=== PATIENT | male | born 1990 | race Two or more races ===

== ENCOUNTER 2021-02-15 05:09 | Emergency (ER) | payer SELFPAY ==
[2021-02-15] MEDS ORDERED: Sodium Chloride 0.9% 2.5 ML Syringe FLUSH PRN (05:21)
[2021-02-15] MEDS ORDERED: Sodium Chloride 0.9% 10 ML Syringe FLUSH PRN (05:21)
[2021-02-15] MEDS ORDERED: Sodium Chloride 0.9% 1,000 ML IV ONE (05:22)
[2021-02-15] MEDS ORDERED: Ketorolac 30 MG/ML SDV IVPUSH ONE (05:27)
[2021-02-15] MEDS ORDERED: Ondansetron 4 MG/2 ML SDV IVPUSH ONE (05:28)
--- NOTE | 2021-02-15 05:28 | EDM.PDOC ---
ED HPI GENERAL MEDICAL PROBLEM - General Chief Complaint: Abdominal Pain Stated Complaint: ABDOMINAL PAIN Time Seen by Provider: 02/15/21 05:17 - History of Present Illness INITIAL COMMENTS - FREE TEXT/NARRATIVE: History of present illness: [] This patient woke up this morning with severe pain in the right side of his abdomen and radiates to his groin. He is also vomiting. When I first met the gentleman he sitting on the commode after passing urine and feels like he has to pass stool but is unable to produce the stool. The pain is constant and severe but there is sharp exacerbations that come and go. He is never had the pain before. Review of systems: As per history of present illness and below otherwise all systems reviewed and negative. Past medical history: As per history of present illness and as reviewed below otherwise noncontributory. Surgical history: As per history of present illness and as reviewed below otherwise noncontributory. Social history: No reported history of drug or alcohol abuse. Family history: As per history of present illness and as reviewed below otherwise noncontributory. Physical exam: Constitutional - well developed, well-nourished and in no acute distress HEENT - normocephalic, no evidence of trauma - external nose and mouth normal - no mass in neck and no JVD - mucosae moist EYES - full EOM, PERRL, no icterus - no evidence of inflammation, injection, or drainage Respiratory - no respiratory distress, equal bilateral expansion, lungs clear to auscultation and no abnormal lung sounds Cardiovascular - Regular Rhythm with S1 and S2 appreciated and no murmur, gallop or rub. GI - abdomen soft without distension or organomegaly - normal bowel sounds - no guard or rebound normal external genitalia and no mass in the scrotum. Testicles appear normal and are nontender Musculoskeletal no gross deformity of long bones or joints - no tenderness, swelling or edema Neurologic - Alert and oriented times four - CN II-XII grossly intact - motor sensory and coordination symmetrically normal Psychiatric - appropriate mood and affect with normal thought content Hematologic - No petechiae or purpura - mucosa appropriate color and sclera not pale - normal nail bed color and refill Integument - no rash or evidence of trauma - normal turgor Diagnostics: [] Therapeutics: [] Impression: [] Plan: [] Definitive disposition and diagnosis as appropriate pending reevaluation and review of above. 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 Abdomen Pain Score (Numeric/FACES): 10 - Related Data Allergies Allergy/AdvReac Type Severity Reaction Status Date / Time No Known Allergies Allergy Verified 02/15/21 05:11 Home Meds: Home Meds Acetaminophen/oxyCODONE [Percocet 325-5 MG] 1 - 2 each PO Q4H PRN #20 tab 02/15/21 [Rx] Prazosin HCl [Prazosin] 4 mg PO BEDTIME 02/15/21 [History] Sertraline [Zoloft] 200 mg PO DAILY 02/15/21 [History] Tamsulosin [Tamsulosin 24 Hr] 0.4 mg PO DAILY 10 Days #10 cap.er 02/15/21 [Rx] busPIRone [Buspar] 20 mg PO DAILY 02/15/21 [History] ED ROS GENERAL - Review of Systems Review Of Systems: Comprehensive ROS is negative, except as noted in HPI. ED EXAM, GENERAL - Physical Exam Exam: See Below Free Text/Narrative:: My physical exam is in the HPI Course - Vital Signs Text/Narrative:: Oh 6:40 AM pain was relieved with ketorolac. CT shows a 1.5 mm distal right ureter stone. Both kidneys have other stones that are not causing obstruction at this point. Last Recorded V/S: Last Vital Signs Temp 36.6 C 02/15/21 05:11 Pulse 74 02/15/21 05:11 Resp 18 02/15/21 05:11 BP 127/89 02/15/21 05:11 Pulse Ox 99 02/15/21 05:11 - Orders/Labs/Meds Orders: Active Orders 24 hr Category Date Time Status Sodium Chloride 0.9% [Saline Flush] Med 02/15/21 05:21 Active 10 ml FLUSH ASDIRECTED PRN Sodium Chloride 0.9% [Saline Flush] Med 02/15/21 05:21 Active 2.5 ml FLUSH ASDIRECTED PRN Saline Lock Insert [OM.PC] Stat Oth 02/15/21 05:21 Ordered Medication Orders Sodium Chloride (Sodium Chloride 0.9% 10 Ml Syringe) 10 ml FLUSH ASDIRECTED PRN PRN Reason: Keep Vein Open Last Admin: 02/15/21 05:32 Dose: 10 ml Documented by: IDALMIS Sodium Chloride (Sodium Chloride 0.9% 2.5 Ml Syringe) 2.5 ml FLUSH ASDIRECTED PRN PRN Reason: Keep Vein Open Last Admin: 02/15/21 05:32 Dose: 2.5 ml Documented by: IDALMIS Labs: Laboratory Tests 02/15/21 02/15/21 02/15/21 Range/Units 05:15 05:15 05:25 WBC 17.55 H (4.0-11.0) K/uL RBC 4.63 (4.50-5.90) M/uL Hgb 13.9 (13.0-17.0) g/dL Hct 39.2 (38.0-50.0) % MCV 84.7 (80.0-98.0) fL MCH 30.0 (27.0-32.0) pg MCHC 35.5 (31.0-37.0) g/dL RDW Std Deviation 38.9 (28.0-62.0) fl RDW Coeff of Maurice 13 (11.0-15.0) % Plt Count 308 (150-400) K/uL MPV 11.10 (7.40-12.00) fL Neut % (Auto) 67.6 (48.0-80.0) % Lymph % (Auto) 22.5 (16.0-40.0) % [place] % (Auto) 6.6 (0.0-15.0) % Eos % (Auto) 2.8 (0.0-7.0) % Baso % (Auto) 0.5 (0.0-1.5) % Neut # (Auto) 11.9 H (1.4-5.7) K/uL Lymph # (Auto) 4.0 H (0.6-2.4) K/uL [place] # (Auto) 1.2 H (0.0-0.8) K/uL Eos # (Auto) 0.5 (0.0-0.7) K/uL Baso # (Auto) 0.1 (0.0-0.1) K/uL Nucleated RBC % 0.0 /100WBC Nucleated RBCs # 0 K/uL Sodium 138 (136-148) mmol/L Potassium 4.0 (3.5-5.1) mmol/L Chloride 102 (98-107) mmol/L Carbon Dioxide 25.2 (21.0-32.0) mmol/L BUN 12 (7.0-18.0) mg/dL Creatinine 1.3 (0.8-1.3) mg/dL Est Cr Clr Drug Dosing 66.76 mL/min Estimated GFR (MDRD) > 60.0 ml/min Glucose 122 H (74-106) mg/dL Calcium 8.4 L (8.5-10.1) mg/dL Total Bilirubin 0.1 L (0.2-1.0) mg/dL AST 13 L (15-37) IU/L ALT 18 (14-63) IU/L Alkaline Phosphatase 61 (46-116) U/L Total Protein 7.4 (6.4-8.2) g/dL Albumin 4.1 (3.4-5.0) g/dL Globulin 3.3 (2.6-4.0) g/dL Albumin/Globulin Ratio 1.2 (0.9-1.6) Lipase 73 (73-393) U/L Urine Color YELLOW Urine Appearance SLT CLOUDY Urine pH 5.5 (5.0-8.0) Ur Specific [place] >= 1.030 (1.001-1.035) Urine Protein NEGATIVE (NEGATIVE) mg/dL Urine Glucose (UA) NEGATIVE (NEGATIVE) mg/dL Urine Ketones NEGATIVE (NEGATIVE) mg/dL Urine Occult Blood LARGE H (NEGATIVE) Urine Nitrite NEGATIVE (NEGATIVE) Urine Bilirubin NEGATIVE (NEGATIVE) Urine Urobilinogen 0.2 (<2.0) EU/dL Ur Leukocyte Esterase NEGATIVE (NEGATIVE) Urine RBC 60-65 (0-2/HPF) Urine WBC 0-2 (0-5/HPF) Ur Epithelial Cells OCCASIONAL (NONE-FEW) Urine Bacteria RARE (NEGATIVE) Urine Mucus LIGHT (NONE-MOD) Meds: Medications Generic Name Dose Route Start Last Admin Trade Name Freq PRN Reason Stop Dose Admin Sodium Chloride 10 ml 02/15/21 05:21 02/15/21 05:32 Sodium Chloride 0.9% 10 Ml Syringe FLUSH 10 ml ASDIRECTED PRN Administration Keep Vein Open Sodium Chloride 2.5 ml 02/15/21 05:21 02/15/21 05:32 Sodium Chloride 0.9% 2.5 Ml Syringe FLUSH 2.5 ml ASDIRECTED PRN Administration Keep Vein Open Discontinued Medications Generic Name Dose Route Start Last Admin Trade Name Freq PRN Reason Stop Dose Admin Sodium Chloride 1,000 mls @ 1,000 mls/hr 02/15/21 05:22 02/15/21 05:31 Normal Saline IV 02/15/21 06:21 1,000 mls/hr .Bolus ONE Administration Ketorolac Tromethamine 15 mg 02/15/21 05:27 02/15/21 05:37 Ketorolac 30 Mg/Ml Sdv IVPUSH 02/15/21 05:28 15 mg ONETIME ONE Administration Ondansetron HCl 4 mg 02/15/21 05:28 02/15/21 05:37 Ondansetron 4 Mg/2 Ml Sdv IVPUSH 02/15/21 05:29 4 mg ONETIME ONE Administration Tamsulosin HCl 0.4 mg 02/15/21 06:34 02/15/21 06:39 Tamsulosin 0.4 Mg Cap.Er PO 02/15/21 06:35 0.4 mg ONETIME ONE Administration Departure - Departure Time of Disposition: 06:40 Disposition: Home, Self-Care 01 Condition: Good Clinical Impression: Ureter colic, Ureteral calculus, right - Discharge Information Prescriptions: Tamsulosin [Tamsulosin 24 Hr] 0.4 mg PO DAILY 10 Days #10 cap.er Acetaminophen/oxyCODONE [Percocet 325-5 MG] 1 - 2 each PO Q4H PRN #20 tab PRN Reason: Pain (Severe 7-10) Instructions: Renal Colic, [id number], Kidney Stones, [id number] Referrals: PCP,None [Primary Care Provider] - Lashanda Clayton DO [Ordering Only Provider] - Forms: ED Department Discharge Additional Instructions: Strain urine. Once he passed the stone this should be over. There are stones in your kidneys that might move in the future causing similar pain. Drink plenty of fluids to help pass the stone. If you do not pass a stone make an appointment with urology. The closest urologist Jerman Cordero and should be willing to accept you and make an appointment because they know we do not have any urologist in [place]. [facility] - [facility] [address] [place] [id number] [facility] [address] [place] [address] The following information is given to patients seen in the emergency department who are being discharged to home. This information is to outline your options for follow-up care. We provide all patients seen in our emergency department with a follow-up referral. The need for follow-up, as well as the timing and circumstances, are variable depending upon the specifics of your emergency department visit. If you don't have a primary care physician on staff, we will provide you with a referral. We always advise you to contact your personal physician following an emergency department visit to inform them of the circumstance of the visit and for follow-up with them and/or the need for any referrals to a consulting specialist. The emergency department will also refer you to a specialist when appropriate. This referral assures that you have the opportunity for follow-up care with a specialist. All of these measure are taken in an effort to provide you with optimal care, which includes your follow-up. Under all circumstances we always encourage you to contact your private physician who remains a resource for coordinating your care. When calling for follow-up care, please make the office aware that this follow-up is from your recent emergency room visit. If for any reason you are refused follow-up, please contact the [facility] Emergency Department at and asked to speak to the emergency department charge nurse. Sepsis Event Note (ED) - Focused Exam Vital Signs: Vital Signs Temp Pulse Resp BP Pulse Ox 02/15/21 05:11 36.6 C 74 18 127/89 99 - My Orders Last 24 Hours: My Active Orders 02/15/21 05:21 Sodium Chloride 0.9% [Saline Flush] 10 ml FLUSH ASDIRECTED PRN Sodium Chloride 0.9% [Saline Flush] 2.5 ml FLUSH ASDIRECTED PRN Saline Lock Insert [OM.PC] Stat - Assessment/Plan Last 24 Hours: My Active Orders 02/15/21 05:21 Sodium Chloride 0.9% [Saline Flush] 10 ml FLUSH ASDIRECTED PRN Sodium Chloride 0.9% [Saline Flush] 2.5 ml FLUSH ASDIRECTED PRN Saline Lock Insert [OM.PC] Stat
[2021-02-15 05:43] LABS: BLOOD UREA NITROGEN,BUN 12 mg/dL (7.0-18.0); CARBON DIOXIDE,CO2 25.2 mmol/L (21.0-32.0); CHLORIDE,CL 102 mmol/L (98-107); GLUCOSE RANDOM 122 mg/dL (74-106); LIPASE 73 U/L (73-393); SODIUM,NA 138 mmol/L (136-148)
--- NOTE | 2021-02-15 06:32 | CT ---
INDICATION: Right-sided abdominal pain radiating to the groin TECHNIQUE: CT abdomen and pelvis without contrast. COMPARISON: None FINDINGS: Lower chest: Unremarkable. Liver: Unremarkable. Spleen: Unremarkable. Pancreas: Unremarkable. Gallbladder and bile ducts: Unremarkable. Adrenal glands: Unremarkable. Kidneys: Mild right hydronephrosis and hydroureter secondary to a 1.5 mm stone in the distal right ureter. There are also two stones in the right kidney, the largest measuring 1.5 mm. There is a 1 mm nonobstructive left renal stone. GI tract: Unremarkable. Appendix is normal. Vascular structures: Unremarkable. Lymph nodes: Unremarkable. Miscellaneous: Unremarkable. No free air or significant free fluid. Pelvic Organs: Unremarkable. Bones: Unremarkable for age. IMPRESSION: Mild right hydronephrosis and hydroureter secondary to a 1.5 mm stone in the distal right ureter. Additional stones are seen in both kidneys. Please note that all CT scans at this facility use dose modulation, iterative reconstruction, and/or weight-based dosing when appropriate to reduce radiation dose to as low as reasonably achievable. Dictated by Kasandra Zhou MD @ 02/15/2021 6:30:18 AM (Electronically Signed)
[2021-02-15] MEDS ORDERED: Tamsulosin 0.4 MG Cap.ER PO ONE (06:34)
== END 2021-02-15 06:51 | disposition home or self-care (01) ==
LOC: MW.ED 05:09
DX: N13.2 Hydronephrosis with renal and ureteral calculous obstruction (principal)
CPT/HCPCS: 36415; 74176; 80053; 81001; 83690; 85025; 96374; 96375; 99284; A9270; J1885; J2405; J7030